=== PATIENT | male | born 1990 | race African-American/Black ===

== ENCOUNTER 2021-04-15 13:22 | Emergency (ER) | payer OTHER ==
[2021-04-15 13:57] VITALS: BMI 26.1
[2021-04-15] MEDS ORDERED: CLINDAMYCIN 600MG PREMIX IVPB 600 MG/50 ML BAG IVPB ONE ×2 (15:09→15:33)
[2021-04-15 15:48] LABS: BASO % 0.4 % (0-2.0); EOS % 0.2 % (0-4.5); HEMATOCRIT 44.5 % (35.4-49); HEMOGLOBIN 14.7 GM/dL (11.7-16.9); LYMPH % 12.4 % (8-40); MCH 27.7 pg (25.7-33.7); MEAN CELL VOLUME 83.9 fl (80-96); MEAN PLT VOLUME 9.5 fl (7.5-11.1); MONO % 9.7 % (3.8-10.2); NEUT % 77.3 % (42.8-82.8); PLATELET COUNT 221 10^3/uL (134-434); RDW 14.1 % (11.9-15.9); WHITE BLOOD COUNT 8.7 K/mm3 (4.0-10.0)
[2021-04-15 16:08] LABS: ALBUMIN 4.1 g/dl (3.4-5.0); BLOOD UREA NITROGEN 8.8 mg/dL (7-18); CALCIUM 9.7 mg/dL (8.5-10.1)
[2021-04-15 16:13] LABS: BILIRUBIN,TOTAL 0.5 mg/dL (0.2-1); TOT PROT 7.9 g/dl (6.4-8.2)
[2021-04-15] MEDS ORDERED: KETOROLAC TROMETHAMINE 30 MG/1 ML VIAL IVPUSH ONE (19:19)
[2021-04-15] MEDS ORDERED: KETOROLAC TROMETHAMINE 30 MG/1 ML VIAL ONE (19:32)
[2021-04-16 03:53] VITALS: BP 134/73; PULSE 72; TEMP 99
== END 2021-04-16 04:28 | disposition short-term general hospital (02) ==
LOC: JER 13:22 → JERFT 13:22 → JER 04-16 04:28
PROC: 3E03329 Introduction of Other Anti-infective into Peripheral Vein, Percutaneous Approach (ICD-10-PCS; principal; 2021-04-15)
PROC: 3E0333Z Introduction of Anti-inflammatory into Peripheral Vein, Percutaneous Approach (ICD-10-PCS; 2021-04-15)
DX: S02.609A Fracture of mandible, unspecified, initial encounter for closed fracture (principal); W22.8XXA Striking against or struck by other objects, initial encounter; Y04.0XXA Assault by unarmed brawl or fight, initial encounter
CPT/HCPCS: 36415; 70491-TC; 80053; 85025; 99285-25; C9803; Q9967; U0003; U0005